=== PATIENT | male | born 1955 | race Caucasian/White ===

== ENCOUNTER 2017-12-16 05:11 | Emergency (ER) | payer BC ==
[2017-12-16] MEDS: ONDANSETRON (ODT) 4 MG TAB ODT (06:32)
[2017-12-16] MEDS: HYDROCODONE/APAP (5/325) TAB PO (06:32)
== END 2017-12-16 06:41 | disposition home or self-care (01) ==
LOC: FTE 05:11
DX: M54.9 Dorsalgia, unspecified (principal)
CPT/HCPCS: 99283; Z7502